=== PATIENT | male | born 1985 | race Two or more races ===

== ENCOUNTER 2017-03-30 20:41 | Emergency (ER) | payer MEDICAID ==
[~2017-03-30] VITALS: Ht 180.3 cm; Wt 109.6 kg
[2017-03-30 20:48] VITALS: BP 129/91
[2017-03-30] MEDS ORDERED: LEVO137T3 PO (22:09)
[2017-03-30] MEDS ORDERED: ESCI5TAB7 PO (22:10)
[2017-03-30] MEDS ORDERED: CLON1TAB PO (22:10)
== END 2017-03-30 22:13 | disposition home or self-care (01) ==
LOC: ED 21:55
DX: T49.8X1A Poisoning by other topical agents, accidental (unintentional), initial encounter (principal); L24.3 Irritant contact dermatitis due to cosmetics; Y92.89 Other specified places as the place of occurrence of the external cause
CPT/HCPCS: 99283